=== PATIENT | female | born 1980 | race Caucasian/White ===

== ENCOUNTER 2017-02-26 10:29 | Day surgery (SDC) | payer BC ==
[~2017-02-26] VITALS: Ht 162.6 cm; Wt 69.6 kg
[2017-02-26] VITALS (9 sets, daily range): BP systolic 104–127; BP diastolic 60–74; PULSE 69–78; TEMP 97.5–97.8
[~2017-02-26 10:29] MED LIST: ALLEGRA180 MG PO; ASMANEX TW110 MCG/Ac IH; MUCINEX1200 MG PO; NEXIUM40 MG PO; PRENATAL VITAMI1 TAB PO; REGLAN10 MG PO; SEREVENT IH; SINGULAIR 110 MG/TAB PO; VALIUM5 MG PO; [UNRECOGNIZED DRUG - REMARK] PO
[2017-02-26] MEDS ORDERED: FLONASEALLERGY NS (11:11)
[2017-02-26] MEDS ORDERED: ORACEA40MG PO (11:42)
[2017-02-26] MEDS ORDERED: SYNTHROID0.05 MG/TA PO (11:42)
[2017-02-26] MEDS ORDERED: PERCOCET 325 MG1 TA2 PO (12:15)
[2017-02-26] MEDS ORDERED: MOTRIN 800800 MG/TAB PO (12:15)
[2017-02-27 00:35] VITALS: BP 117/75; PULSE 64; TEMP 98
[2017-02-27 05:00] VITALS: BP 104/50; PULSE 64
[2017-02-27 06:40] VITALS: BP 107/68; PULSE 57; TEMP 98.5
== END 2017-02-27 08:50 | disposition home or self-care (01) ==
LOC: SDCO 10:29 → OB 15:15 → SDCO 02-27 08:50
DX: N92.0 Excessive and frequent menstruation with regular cycle (principal); N73.6 Female pelvic peritoneal adhesions (postinfective); Z88.1 Allergy status to other antibiotic agents; E03.9 Hypothyroidism, unspecified; L71.9 Rosacea, unspecified; Q87.2 Congenital malformation syndromes predominantly involving limbs; Q21.1 Atrial septal defect; Q21.0 Ventricular septal defect; J45.909 Unspecified asthma, uncomplicated; K21.9 Gastro-esophageal reflux disease without esophagitis; N32.89 Other specified disorders of bladder; Z88.8 Allergy status to other drugs, medicaments and biological substances; K44.9 Diaphragmatic hernia without obstruction or gangrene
CPT/HCPCS: OP; A4314; G0378; J0690; J1100; J1885; J2270; J2405; J2704; J3010; J7120

== ENCOUNTER → 2017-08-28 | Outpatient (CLI) | payer BC ==
[~2017-08-28] MED LIST changes: +FLONASEALLERGY NS; +MOTRIN 800800 MG/TAB PO; +ORACEA40MG PO; +PERCOCET 325 MG1 TA2 PO; +SYNTHROID0.05 MG/TA PO
== END ==
LOC: ZCOL.LAB 17:30
DX: Z01.812 Encounter for preprocedural laboratory examination (principal); Z86.14 Personal history of Methicillin resistant Staphylococcus aureus infection

== ENCOUNTER → 2018-05-03 | Outpatient (CLI) | payer BC | LOC: MC.RAD 14:14 | DX: Z12.31 Encounter for screening mammogram for malignant neoplasm of breast (principal) ==

== ENCOUNTER 2018-10-16 10:24 | Emergency (ER) | payer BC ==
[~2018-10-16] VITALS: Ht 162.6 cm; Wt 65.9 kg
[2018-10-16 10:27] VITALS: TEMP 97.5
[2018-10-16] MEDS ORDERED: VALIUM 5MG T5 MG/TAB PO (10:30)
[2018-10-16] MEDS ORDERED: MEDROL 4MG DOSPA4 MG PO (10:31)
[2018-10-16] MEDS ORDERED: ZOFRAN ODT4 MG PO (10:31)
[2018-10-16] MEDS ORDERED: PHENERGAN 25 TA25 MG PO (13:18)
[2018-10-16 13:30] VITALS: PULSE 74
== END 2018-10-16 13:34 | disposition home or self-care (01) ==
LOC: COL.ER 10:24
DX: R42 Dizziness and giddiness (principal); Z79.51 Long term (current) use of inhaled steroids
CPT/HCPCS: J0780; J1100; J1885; J3360; J7030

== ENCOUNTER → 2018-10-18 | Outpatient (CLI) | payer BC ==
[~2018-10-18] MED LIST changes: +MEDROL 4MG DOSPA4 MG PO; +PHENERGAN 25 TA25 MG PO; +VALIUM 5MG T5 MG/TAB PO; +ZOFRAN ODT4 MG PO
== END ==
LOC: COL.RAD 13:10
DX: G43.909 Migraine, unspecified, not intractable, without status migrainosus (principal); Z98.890 Other specified postprocedural states

== ENCOUNTER → 2020-04-15 | Outpatient (CLI) | payer BC | LOC: MC.RAD 03-30 15:30 | DX: Z12.31 Encounter for screening mammogram for malignant neoplasm of breast (principal) ==

== ENCOUNTER → 2021-09-06 | Outpatient (CLI) | payer BC, OTHER | LOC: MC.RAD 10:20 | DX: Z12.31 Encounter for screening mammogram for malignant neoplasm of breast (principal) ==

== ENCOUNTER → 2021-11-23 | Outpatient (CLI) | payer BC | LOC: COL.RAD 07:11 | DX: K80.20 Calculus of gallbladder without cholecystitis without obstruction (principal) ==

== ENCOUNTER 2021-12-21 07:30 | Day surgery (SDC) | payer BC ==
[~2021-12-21] VITALS: Ht 162.6 cm; Wt 77.3 kg
[2021-12-21 07:52] VITALS: BP 116/67; PULSE 69; TEMP 97.5
[2021-12-21] MEDS ORDERED: MAG-OX 400400 MG/TAB PO (07:56)
[2021-12-21] MEDS ORDERED: NORCO 325 MG-51 TAB PO (09:16)
[2021-12-21 11:00] VITALS: BP 119/68; PULSE 74; TEMP 97.6
--- NOTE | 2021-12-21 11:00 | NUR ---
The patient arrived back to [facility] from the recovery room at this time. The patient appears alert and oriented and reports minimal pain in her left abdomen. Warm blanket to abdomen at this time. Post operative vital signs were started at this time. The patient has ice chips at her bedside that she appears to be tolerating them well. at bedside. Call light is within reach. Denies any further needs.
[2021-12-21 11:09] VITALS: TEMP 97
[2021-12-21 11:15] VITALS: BP 114/67; PULSE 58
--- NOTE | 2021-12-21 11:15 | NUR ---
The patient appears to be tolerating the ice chips well and denies wanting anything further at this time. Vital signs appear stable. The patient's remains at her bedside.
[2021-12-21 11:30] VITALS: BP 117/86; PULSE 71
--- NOTE | 2021-12-21 11:30 | NUR ---
The patient agrees to try some toast and grape juice. She continues to deny any nausea at this time. remains at bedside.
[2021-12-21 11:45] VITALS: BP 129/83; PULSE 64
--- NOTE | 2021-12-21 11:45 | NUR ---
The patient ambulated to the bathroom with the stand by assistance of one nurse and appeared to tolerate the activity well. The patient voided without difficulty. The patient's IV to her left wrist was removed and a pressure dressing was applied to the site. The nurse instructed the patient to get dressed and notify the staff when she is ready to review her discharge paperwork.
--- NOTE | 2021-12-21 12:15 | NUR ---
Discharge instructions were reviewed with the patient and her at this time. They both verbalized understanding and have no questions for the nurse at this time. The patient is dressed and ready to be escorted out.
--- NOTE | 2021-12-21 12:24 | NUR ---
The patient was escorted out via wheelchair to a private vehicle by JENNIFER Hester. The patient's belongings and discharge paperwork were sent with her. The patient's present to drive her home.
== END 2021-12-21 12:24 | disposition home or self-care (01) ==
LOC: SDCO 07:30
DX: K80.10 Calculus of gallbladder with chronic cholecystitis without obstruction (principal)
CPT/HCPCS: J0690; J1100; J1170; J1885; J2405; J2704; J7120

== ENCOUNTER → 2023-11-29 | Outpatient (CLI) | payer BC ==
[~2023-11-29] MED LIST changes: +MAG-OX 400400 MG/TAB PO; +NORCO 325 MG-51 TAB PO
== END ==
LOC: MC.RAD 09:37
DX: Z12.31 Encounter for screening mammogram for malignant neoplasm of breast (principal)